=== PATIENT | male | born 1970 | race Hispanic/Latino ===

== ENCOUNTER 2016-09-15 18:42 | Emergency (ER) | payer OTHER ==
[~2016-09-15] VITALS: Ht 170.2 cm; Wt 62.6 kg
[2016-09-15 18:51] VITALS: BP 125/74
[2016-09-15] MEDS ORDERED: NEOMYCIN-POLYMY10 M1 OT (21:11)
[2016-09-15] MEDS ORDERED: AMOXICILLIN875 M1 PO (21:11)
--- NOTE | 2016-09-15 21:11 | ED EAR COMPLAINT ---
History of Present Illness General Chief Complaint: Ear Complaints Stated Complaint: PT IS HAVING PROBLEM WITH BOTH EARS Source: patient, old records Exam Limitations: no limitations Vital Signs & Intake/Output Vital Signs & Intake/Output Vital Signs Date Time Temp Pulse Resp B/P Pulse O2 O2 Flow FiO2 Ox Delivery Rate 09/15 1851 97.7 78 20 125/74 98 Room Air ED Intake and Output 09/16 0000 09/15 1200 Intake Total Output Total Balance Patient 138 lb Weight Allergies Coded Allergies: No Known Allergies (09/15/16) Reconcile Medications Amoxicillin 875 MG TABLET 1 TAB PO BID otitis externa Neomycin/Polymyxin B Sulf/Hc (Sujlgbxo-Mcmspfgsz-Za Ear Susp) 3.5 MG/ML-10,000 UNIT/ML-1 % DROPS.SUSP 4 GTT OT TID otitis externa Triage Note: TRIAGE: PT TO ER C/C "I CAN'T HEAR NOTHING" OUT OF HIS EARS. USES HEADPHONES AT WORK. CLEANS EARS WITH QTIPS. THINKS HE'S JUST PUSHING THE WAX IN. DENIES ANY PAIN. Triage Nurses Notes Reviewed? yes Onset: Last week Duration: day(s):, constant, continues in ED Timing: recent history Injury Environment: home Severity: moderate No Modifying Factors: none HPI: Several days prior to admission patient notes decreasing hearing to left ear suspecting he has pushed wax with Q-tips causing impaction. Denies fever chills nausea vomiting diarrhea abdominal pain chest pain shortness breath headache dysuria rash bleeding congestion cough. Past History Travel History Traveled to [place] past 21 day No Medical History Any Pertinent Medical History? none Neurological: NONE EENT: NONE Cardiovascular: NONE Respiratory: NONE Gastrointestinal: NONE Hepatic: NONE Renal: NONE Musculoskeletal: NONE Psychiatric: NONE Endocrine: NONE Blood Disorders: NONE Cancer(s): NONE NEUROPHYSIOLOGIST/Reproductive: NONE Surgical History Surgical History: non-contributory Psychosocial History What is your primary language [place]ian Tobacco Use: Current Daily Use Daily Tobacco Use Amount/Type: =< 4 Cigarettes daily ETOH Use: occasional use Illicit Drug Use: denies illicit drug use Family History Hx Contributory? No Review of Systems Review of Systems Constitutional: Reports: no symptoms. EENTM: Reports: see HPI, ear pain, hearing changes. Respiratory: Reports: no symptoms. Cardiovascular: Reports: no symptoms. GI: Reports: no symptoms. Genitourinary: Reports: no symptoms. Musculoskeletal: Reports: no symptoms. Skin: Reports: no symptoms. Neurological/Psychological: Reports: no symptoms. Hematologic/Endocrine: Reports: no symptoms. Immunologic/Allergic: Reports: no symptoms. All Other Systems: Reviewed and Negative Physical Exam Physical Exam General Appearance: well developed/nourished, alert, awake, anxious, mild distress Head: atraumatic, normal appearance Eyes: Bilateral: normal appearance, PERRL, EOMI. Ears: Left: erythema (EAC), Tympanic red, other (impacted cerumen). Right: canal normal, Tympanic normal. Nose: normal inspection Mouth/Throat: normal mouth inspection, pharynx normal Neck: normal inspection, supple Cardiovascular/Respiratory: normal breath sounds, normal peripheral pulses, regular rate/rhythm Back: normal inspection, normal range of motion, no vertebral tenderness Neurologic/Psych: no motor/sensory deficits, awake, alert, oriented x 3, normal gait, normal mood/affect, ui engineer II-XII nml as tested Skin: intact, normal color, warm/dry Progress Differential Diagnoses I considered the following diagnoses in my evaluation of the patient: Otitis media otitis externa cerumen impaction Plan of Care: irrigation for cerumen disimpaction Initial ED EKG: none Departure Departure Time of Disposition: 2106 Disposition: HOME OR SELF CARE Condition: Stable Clinical Impression Primary Impression: Otitis externa Secondary Impressions: Impacted cerumen, left ear Referrals: PATIENT HAS NO PRIMARY CARE DR (PCP/Family) Departure Forms: Customer Survey General Discharge Information Prescriptions: Current Visit Scripts Amoxicillin 1 TAB PO BID #20 TAB Neomycin/Polymyxin B Sulf/Hc (Sffuetax-Iqridgand-Yx Ear Susp) 4 GTT OT TID #10 ML
== END 2016-09-15 21:22 ==
LOC: ERH 18:42 → EDSEX 19:11 → ERH 19:11
DX: H60.92 Unspecified otitis externa, left ear (principal); H61.22 Impacted cerumen, left ear; Z72.0 Tobacco use